=== PATIENT | male | born 1965 | race Caucasian/White ===

== ENCOUNTER 2019-10-07 23:53 | Emergency (ER) | payer OTHER ==
[~2019-10-07] VITALS: Ht 188 cm; Wt 83.9 kg
[~2019-10-07 23:53] MED LIST: IBUP400 PO; OXYACE5T PO; OXYC30ER PO; VALA500 PO
== END 2019-10-08 01:42 | disposition home or self-care (01) ==
LOC: ER 23:53
DX: S61.412A Laceration without foreign body of left hand, initial encounter (principal); I25.2 Old myocardial infarction; Z88.5 Allergy status to narcotic agent; W23.0XXA Caught, crushed, jammed, or pinched between moving objects, initial encounter
CPT/HCPCS: 12002; 90471; 90714; 99282-25